=== PATIENT | female | born 1945 | race Caucasian/White ===

== ENCOUNTER 2023-09-03 14:40 | Inpatient (IN) | payer OTHER ==
[2023-09-03 19:50] VITALS: BMI 28.0
[2023-09-03] MEDS: GABAPENTIN 300 MG CAP PO SCH (20:00)
[2023-09-03] MEDS: DOXAZOSIN 2 MG TAB PO SCH (21:06)
[2023-09-03] MEDS: MELATONIN 3 MG TABLET PO PRN (21:07)
[2023-09-03] MEDS: GABAPENTIN 400 MG CAP PO SCH (21:07)
[2023-09-03] MEDS ORDERED: BENZONATATE 100 MG CAP PO PRN (22:04)
[2023-09-03] MEDS ORDERED: IPRATROPIUM BROM 0.5MG/2.5ML NEB PRN (22:05)
[2023-09-03] MEDS ORDERED: ALIROCUMAB SQ SCH (22:15)
[2023-09-04] MEDS: TRAMADOL HCL 50 MG TAB PO PRN (03:12)
[2023-09-04 03:46] LABS: Hematocrit 29.8 % (36.0-45.0); Lymphocytes % 11.8 % (15.3-44.8); MCV 89.1 fL (80-100); MPV 8.1 fL (7.6-11.3); Platelets 260 thou/uL (152-406); RBC Red Blood Cell Count 3.35 M/uL (3.86-4.86)
[2023-09-04 04:05] LABS: Albumin 2.6 g/dL (3.4-5.0); Magnesium 1.9 mg/dL (1.6-2.4); Potassium 3.5 mEq/L (3.5-5.1); Prealbumin 22.3 mg/dL (20-40)
[2023-09-04 04:54] LABS: Calcium Oxalate Crystals- Ur Few /HPF (None Seen); Renal Epithelial <5 /HPF (None Seen); Specific Gravity 1.026 (1.005-1.030); Urine Bacteria Loaded /HPF (<20); Urine Bilirubin NEGATIVE (Negative); Urine Blood 3+ (OVER) (Negative); Urine Clarity Extremely Turbid (Clear); Urine Color Yellow (Yellow); Urine Glucose NEGATIVE (Negative); Urine Mucus 3+ /HPF (None Seen); Urine Protein TRACE (Negative); Urine RBC >50 /HPF (None Seen); Urine Urobilinogen Normal (Normal); Urine pH 5.5 (5.0-7.0)
[2023-09-04] MEDS: PANTOPRAZOLE 40MG TABLET PO SCH (05:42)
[2023-09-04] MEDS: VORTIOXETINE PO SCH (08:00)
[2023-09-04] MEDS: NEBIVOLOL HCL 5 MG TAB PO SCH (08:15)
[2023-09-04] MEDS: MULTIVITAMIN TAB PO SCH (08:15)
[2023-09-04] MEDS: ASPIRIN 81 MG CHEWABLE TABLET PO SCH (08:15)
[2023-09-04] MEDS: GABAPENTIN 300 MG CAP PO SCH ×3 (08:15→20:23)
[2023-09-04] MEDS: ALIROCUMAB SQ SCH (08:16)
--- NOTE | 2023-09-04 18:25 | HP ---
Date of Admission: 09/03/2023 Time Of Service: 12 noon. Chief Complaint: "I became weak. 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 Landis is a 78-year-old patient with hypertension, dyslipidemia, osteo arthritis, major depressive disorder, who had an upper respiratory tract infection in mid July of last year. She subsequently began having tingling, numbness, and weakness progressive from her toes to her feet, to her legs, and to her arms. Within 2 days, she was unable to walk. By August 19 , she had to be hospitalized. She was initially seen at [facility] and diagnosed with viral bronchitis first and received nebulizers and steroids and subsequently had developed the weakn ess in the arms and legs. 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 MRI of her cervical spine showed C5-6 moderate stenosis along wi th C6-7 stenosis, but no edema or myelomalacia. The evaluating physicians noted the cervical canal f indings were likely incidental and may be followed up outpatient, but not contributing to her current symptoms. Additional incidental findings on brain MRI, an acute left temporal lobe lacunar infarct in the right frontal lobe as well. She was treated with aspirin 81 mg daily and was noted to require neurological followup on outpatient basis. She did receive an induction course of IVIG per protocol for she said 6 days, but has not discussed a plan to continue IVIG with her treating physicians. Sh lamar did have incentive spirometry after BiPAP showed she did have hypoxia. She noted that the Guillain -Clements apparently affected up to around the just below the nipple level and it affects her capacity t o breathe and why she required the respiratory support. She has been put on oxygen via nasal cannula and began therapy. In the meantime, she did have elevated leukocytosis, urinary tract infection was identified for which she received Rocephin for 4 days. Further she had a neurogenic bladder identif ied by Urology and had failed voiding trials on 2 occasions. She had a Chao put in place. 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 She was unable to ambulate because of severe weakn ess in lower extremities, do ordinary activities of daily living, to dress lower body, to perform jose wering or toileting. No dependence to moderate assistance required and was therefore determined to b e an appropriate candidate for inpatient rehabilitation to help return towards her prior level of fun ction where she was fully independent without need for any assistive device. Past Medical History: As noted above, arthritis, depression, gastroesophageal reflux disease, dyslip idemia, hypertension, osteoarthritis. Past Surgical History: Bilateral total knee arthroplasty, cardiac catheterization in 2016, cholecyst ectomy 2020, hysterectomy 2013, and shoulder surgery as well. Family History: Noncontributory. Allergies: NO KNOWN DRUG ALLERGIES. Medications: Tylenol 500 mg every 4 hours as needed; aspirin 81 mg daily; Tessalon Perles 100 mg 3 t imes daily; Cardura 2 mg at bedtime; gabapentin 300 mg in the morning, 300 mg at noon, 600 mg at nigh t; Atrovent 0.5 mg twice daily; melatonin 5 mg at bedtime; Centrum Silver 1 tablet daily; Bystolic 5 mg daily; Protonix 40 mg daily; Senokot S 2 at bedtime, tramadol 50 mg every 4 hours as needed. X-ray/imaging: As mentioned above. Review of Systems: She does report some mild shortness of breath, difficulty moving her legs, pain in the feet and legs, worse at nighttime and some tingling as well in the hands, but no other positives on systems review. Current Level Of Functioning: Currently, set up assistance for eating, supervision for oral hygiene, dependent for toileting, maximal assist for showering and upper body dressing, dependent for lower b lee dressing, rolling [id number] and [id number]-[id number] moderate assistance. Bfi-ko-jcbcz bed, moderat e assistance. She is dependent for transfers from bed to chair, to toilet. For ambulation, dependen t, not able ambulate stairs, not able to go up and down stairs. Rehab And Medical Assessment And Plan: Ms. Landis is in the rehabilitation unit with impairment catego ry 19, Guillain-Clements syndrome. Her impairment group code is 03.4 Guillain-Clements Syndrome. 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 Comorbidities are anemia, bronchitis, hypertension, urin aria tract infection, neurogenic bladder, hyperkalemia, hyponatremia, recurrent falls, urinary retenti on, and constipation. She does have a left temporal lobe lacunar infarct and right frontal lobe, als o in acute lacunar infarct and cervical spinal stenosis with nerve root compression, but not signific ant. Plan: 1.She will have physical, occupational, and speech therapy for 3.5 hours, 5/7 days. 2.We will continue the Senokot S for constipation. We may add Flomax to help with urinary retention . We will continue nebulizer treatments including Atrovent nebulizer for her respiratory challenge r elated to Guillain-Clements. Continue aspirin for pain. The gabapentin dosage was adjusted to 300 mg t he morning, 300 mg at noon, and 600 mg at night for the neuropathic pain. She also has a cream of ga bapentin along with 5% lidocaine and 40% zinc that will be applied at night as needed. Comorbidities That Are Impacting Her Rehabilitation: Currently, the biggest issue is diffuse weaknes s in the lower extremities. She is only able to stand with a Patience lift. Unable to do any ambulation . She also has some issues of shortness of breath and will be on incentive spirometry for that. She is at high risk of aspiration pneumonia, high risk of deep vein thrombosis, and she will have an Renita mitul 2.5 mg twice daily for DVT prophylaxis. Rehab Specific Plan: She will work with the Patience lift to bed to sit to stand. She will work in the parallel bars to be able to ambulate at least 10 feet. Arm strength will likely return before lower extremity strength, so wheelchair mobilization and transfers will be worked on. She will work on upp er and lower body dressing, work on toileting. She will work with speech to work on swallowing to re duce the risk of aspiration pneumonia and she will have 3.5 hours, 5/7 days of all of the therapy as noted including the physical, occupational, and speech therapy. Ms. Landis has good understanding of the process of admission to inpatient rehabilitation facility and that she will benefit from physical, occupational, speech therapy along with daily physician evaluati on and management. A 24 hour fdc and social service nurse for planning discharge. If ne ed be, assistance from the respiratory service, cardiac service, nutrition service, and gastrointesti nal service will be consulted. Given the risk of complications from her complicated medical history and condition, rehabilitation cannot be safely or effectively performed at a lower level facility suc h as fdc. Barriers To Discharge: Currently, she was fully independent at home and will possibly not be fully i ndependent prior to discharge and she may require 24 hours help at home. It may be that she has to g o to fdc to complete her therapy. Estimated Length Of Stay: About maybe 14 or longer days. Disposition: Expected to be home with home health and family. Prognosis: Good. Rehab Specific Goals: 1.Become independent with upper and lower body dressing, showering, toileting, donning, and doffing shoes. 2.Independently ambulate household distances of 50 feet with a rolling walker. 3.Independent to propel a wheelchair 250 feet. 4.Independently go and down 5 steps with bilateral handrails. 5.Perform upper and lower body dressing, toileting, showering, all independently. 6.Perform cognitive functioning and managing swallowing independent. The above goals were reviewed with Ms. Landis and she is in agreement. By signing this document, I acknowledge I have performed a full physical examination on Ms. Landis no l ater than 24 hours after her admission to the inpatient rehabilitation facility and determined that s he is able to tolerate the above course of treatment at an intensive level for reasonable period of t bertha. A detailed individualized plan of care for her will be completed by hospital day 4 based on the preadmission screen, history and physical, and therapy evaluations. DARRELL Voice ID: [id number]
[2023-09-04] MEDS: MELATONIN 5 MG TABLET PO PRN (20:23)
[2023-09-04] MEDS: APIXABAN 2.5 MG TABLET PO SCH (20:23)
[2023-09-04] MEDS: ACETAMINOPHEN 500 MG TAB PO PRN (20:24)
[2023-09-04] MEDS: GABAPENTIN TOP SCH (20:24)
[2023-09-04] MEDS: ZINC OXIDE TOP SCH (20:24)
[2023-09-04] MEDS: LIDOCAINE TOP SCH (20:24)
[2023-09-05 06:48] LABS: Absolute Lymphocytes (CBC) 0.9 K/uL (0.7-4.9); Hematocrit 29.7 % (36.0-45.0); Lymphocytes % 19.8 % (15.3-44.8); MCV 88.9 fL (80-100); MPV 8.7 fL (7.6-11.3); Platelets 244 thou/uL (152-406); RBC Red Blood Cell Count 3.34 M/uL (3.86-4.86)
[2023-09-05 07:07] LABS: Albumin 2.5 g/dL (3.4-5.0); Potassium 3.7 mEq/L (3.5-5.1); Prealbumin 20.6 mg/dL (20-40)
[2023-09-05] MEDS: CRANBERRY FRUIT EXTRACT 200 MG CAP PO SCH (09:37)
[2023-09-05] MEDS: SIMETHICONE 80 MG CHEWABLE TAB PO PRN (21:14)
--- NOTE | 2023-09-05 22:16 | PN ---
Date of Progress Note: 09/05/2023 Time Of Service: 1:05 p.m. Subjective: Ms. Landis is resting in bed, getting ready to do physical therapy. She does report some pain in her legs and she believes there is slightly more increased movement in the legs and feet and some tingling as well, but she denies any other significant complaints. Objective: No fevers or chills. No significant nausea, vomiting, myalgias, arthralgias. No rash, h eadache, weight change. No psychiatric issues. No gastrointestinal or genitourinary active issues. Laboratory Studies: White blood cell count 4.4, hemoglobin 10.4, platelets 244. Sodium 137, potassi um 3.7, chloride 105, carbon dioxide 28, BUN 16, creatinine 0.58, prealbumin 22.6, albumin 2.5. Urin alysis from the 10th, extremely turbid, 3+ blood, 2+ nitrite, 75 esterase, greater than 50 red blood cells, white blood cells 20 to 50, bacteria loaded, 3+ mucus, trace protein. Her urine cultures did grow greater than 100,000 colony-forming units and the sensitivities of the 4+ [id number] str ep with 4+ gram-negative rods. Sensitivities for that pending. X-ray/imaging: No new x-rays or imaging. Medications: Tylenol 500 mg every 4 hours as needed, Eliquis 2.5 mg twice daily, aspirin 81 mg daily , Tessalon Perles 100 mg 3 times daily, Cardura 2 mg at bedtime, gabapentin 300 mg in the morning, 30 0 mg at noon, and 600 mg at night, which she did say is helping her significantly, ipratropium nebuli zer 2.5 mg every 6 hours as needed, melatonin 5 mg at bedtime, Centrum Silver 1 tablet daily, Bystoli c 5 mg daily, Zofran 4 mg 6 hours for nausea and vomiting, Protonix 40 mg daily, Senokot-S 2 at bedti me, and tramadol 50 mg every 4 hours as needed. Progress Made With Physical And Occupational Therapy And Speech Therapy: Today with physical therapy , she completed bed mobility with moderate assistance. Supine to sit, max assistance. Sit to transf er 4 times, max assistance. In addition, supine to sit, max assist. Also subsequently with physical therapy, transfer from bed to chair, wheelchair was at maximum assistance level. Regarding her spee ch therapy, she recalled 3 of 4 unrelated pictures after 5 minutes on first attempt and 4 of 4 after second attempt. She used adaptive reasoning to find excluded items per list with 90% accuracy and mi nimum assistance. With occupational therapy, toileting dependent, bathing minimum assist, upper body dressing standby assistance, lower body dressing moderate assistance required, grooming independent. Ms. Landis is making slow progress so far with her physical and occupational therapy, perhaps better pr ogress in speech therapy. She does have significant weakness in the lower extremities. In terms of her neurological examination, the lower extremity strength slowly improving around 3 to 4 proximally and distally with decreased sensation in stocking-glove fashion, decreased reflexes noted there. Assessment: Ms. Landis is a 78-year-old patient in rehabilitation unit with Guillain-[place]. She has l ikely bacterial infection with 4+ iuu-fgal-hadtzsrru strep with sensitivities pending. Additional co morbidities, anemia, bronchitis, hypertension, neurogenic bladder, hyperkalemia, hyponatremia, left t emporal lobe lacunar infarct, and right temporal lobe infarct, cervical spinal stenosis with nerve ro ot compression. Plan: 1.She will continue physical, occupational, and speech therapy for 3.5 hours, 5 of 7 days. 2.Continue with home medications including Flomax for urinary retention. Continue nebulizers for re spiratory challenges. Continue aspirin for stroke risk reduction, gabapentin for neuropathic pain morel s been increased. As noted, she has the gabapentin cream, that will be applied twice daily as needed , and she will again have antibiotics once sensitivities are determined. Centrum Silver continued. Eliquis 2.5 mg twice daily. Continue with only aspirin. Comorbidities That Are Impacting Her Rehabilitation: She has a high fall risk because of diffuse wea kness in the lower extremities and is requiring extensive rehabilitation to improve. She has been gi elmer around 26 days and that should allow her to be able to transfer with more confidence and towards independence and perform household activities with adaptive equipment such as rolling walker and reachers with modified independence wit hin the next 3 weeks. LB/MODL Voice ID: [id number] Report ID: [id number]
[2023-09-06] MEDS: ONDANSETRON 4 MG (ODT) TAB PO PRN (07:01)
[2023-09-06] MEDS: TRINTELLIX 10 MG PO SCH (08:46)
--- NOTE | 2023-09-06 13:16 | P.RH.PN ---
Estimated Length of Stay: 26 Expected Discharge Date: 09/28/23 Discharge Disposition Plan: Home Family Support: Yes Nursing Home Goal: Mobility, Transfers, Self Care Vital Signs: Last Vital Signs Temp 97.7 F 09/06/23 08:00 Pulse 90 09/06/23 09:50 Resp 16 09/06/23 08:45 BP 108/68 09/06/23 09:50 Pulse Ox 96 09/06/23 08:00 Laboratory: Laboratory Last Values WBC 4.40 thou/uL (4.3-10.9) 09/05/23 05:25 RBC 3.34 M/uL (3.86-4.86) L 09/05/23 05:25 Hgb 10.4 g/dL (12.0-15.0) L 09/05/23 05:25 Hct 29.7 % (36.0-45.0) L 09/05/23 05:25 MCV 88.9 fL (80-100) 09/05/23 05:25 MCH 31.1 pg (27.0-35.0) 09/05/23 05:25 MCHC 35.0 g/dL (32.0-36.0) 09/05/23 05:25 RDW 16.4 % (12.1-15.2) H 09/05/23 05:25 Plt Count 244 thou/uL (152-406) 09/05/23 05:25 MPV 8.7 fL (7.6-11.3) 09/05/23 05:25 Neutrophils % 66.1 % (41.7-73.7) 09/05/23 05:25 Lymphocytes % 19.8 % (15.3-44.8) 09/05/23 05:25 Monocytes % 11.0 % (3.3-12.3) 09/05/23 05:25 Eosinophils % 2.5 % (0-4.4) 09/05/23 05:25 Basophils % 0.6 % (0-1.3) 09/05/23 05:25 Absolute Neutrophils 2.9 K/uL (1.8-8.0) 09/05/23 05:25 Absolute Lymphocytes 0.9 K/uL (0.7-4.9) 09/05/23 05:25 Absolute Monocytes 0.5 K/uL (0.1-1.3) 09/05/23 05:25 Absolute Eosinophils 0.1 K/uL (0-0.5) 09/05/23 05:25 Absolute Basophils 0.0 K/uL (0-0.5) 09/05/23 05:25 Sodium 137 mEq/L (136-145) 09/05/23 05:25 Potassium 3.7 mEq/L (3.5-5.1) 09/05/23 05:25 Chloride 105 mEq/L (98-107) 09/05/23 05:25 Carbon Dioxide 28 mEq/L (21-32) 09/05/23 05:25 Anion Gap 7.7 mEq/L (5.0-15.0) 09/05/23 05:25 BUN 16 mg/dL (7-18) 09/05/23 05:25 Creatinine 0.58 mg/dL (0.55-1.02) 09/05/23 05:25 Est GFR (CKD-EPI) 93 ml/min (=/>90) 09/05/23 05:25 Glucose 90 mg/dL (74-106) 09/05/23 05:25 Calcium 9.0 mg/dL (8.5-10.1) 09/05/23 05:25 Magnesium 2.0 mg/dL (1.6-2.4) 09/05/23 05:25 Albumin 2.5 g/dL (3.4-5.0) L 09/05/23 05:25 Prealbumin 20.6 mg/dL (20-40) 09/05/23 05:25 Urine Color Yellow (Yellow) 09/04/23 04:20 Urine Clarity Extremely turbid (Clear) H 09/04/23 04:20 Urine pH 5.5 (5.0-7.0) 09/04/23 04:20 Ur Specific Ayr 1.026 (1.005-1.030) 09/04/23 04:20 Glucose (UA)(Auto) Negative (Negative) 09/04/23 04:20 Urine Ketones Negative (Negative) 09/04/23 04:20 Urine Blood 3+ (over) (Negative) H 09/04/23 04:20 Urine Nitrite 2+ (Negative) H 09/04/23 04:20 Urine Bilirubin Negative (Negative) 09/04/23 04:20 Urine Urobilinogen Normal (Normal) 09/04/23 04:20 Ur Leukocyte Esterase 75 Grace/uL (Negative) H 09/04/23 04:20 Urine RBC >50 /HPF (None Seen) H 09/04/23 04:20 Urine WBC 20-50 /HPF (<5) H 09/04/23 04:20 Ur Squamous Epith Cells <5 /HPF (None Seen) 09/04/23 04:20 U Non-Squamous Epi Cells <5 /HPF (None Seen) 09/04/23 04:20 Ur Renal Epithelial Cell <5 /HPF (None Seen) 09/04/23 04:20 Calcium Oxalate Crystal Few /HPF (None Seen) 09/04/23 04:20 Urine Bacteria Loaded /HPF (<20) H 09/04/23 04:20 Urine Mucus 3+ /HPF (None Seen) H 09/04/23 04:20 Urine Culture Reflexed Reflexed 09/04/23 04:20 Urine Total Protein Trace (Negative) H 09/04/23 04:20 SARS-CoV-2 Rap RNA(RT-PCR) Negative (NEGATIVE) 09/03/23 21:40 Weight: 153 lb 6.4 oz Wound Present: No Negative Pressure Wound Therapy Present: No Physician Update: Labs reviewed and are stable. Bilateral heels and sacrum stage I ulcers. Still significantly weak. BIMS 15, SLUMS 23. Met 2/3 speech goals. Max assistance for all physical therapy. Stood 5 times in parallel bars longest 1 minute. Improved trunk strength. Min assistance lower body dressing. Started sliding board transfers. Summary: Patient's care plan and emt intermediate goals have been reviewed and revised as necessary. Please see the Rehabilitation Signature page for all necessary signatures.
[2023-09-06] MEDS ORDERED: DOCUSATE NA 100 MG CAP PO PRN (15:49)
[2023-09-06] MEDS: NEBIVOLOL HCL 5 MG TAB PO SCH (20:18)
[2023-09-07] MEDS: LIDOCAINE 4% PATCH TOP SCH (07:25)
[2023-09-07] MEDS: PANTOPRAZOLE 40MG TABLET PO SCH (07:27)
[2023-09-07] MEDS: DOCUSATE NA 100 MG CAP PO SCH (08:25)
[2023-09-07] MEDS: TAMSULOSIN 0.4 MG SR CAP PO SCH (20:05)
[2023-09-08] MEDS ORDERED: POTASSIUM 25 MEQ EFFERV TAB PO SCH (08:00)
[2023-09-08] MEDS: GABAPENTIN 300 MG CAP PO SCH (08:18)
[2023-09-08] MEDS: DOCUSATE NA 100 MG CAP PO SCH (08:19)
[2023-09-08] MEDS: CIPROFLOXACIN HCL 500 MG TAB PO SCH (19:44)
[2023-09-08] MEDS: MAGNESIUM OXIDE 400 MG TAB PO SCH (19:46)
[2023-09-09] MEDS: ONDANSETRON 4 MG (ODT) TAB PO PRN (17:18)
--- NOTE | 2023-09-09 18:27 | RAD REPORT ---
EXAM DESCRIPTION: RAD - Abdomen 1 View (KUB) - 09/09/2023 6:04 pm CLINICAL HISTORY: constipation Pain COMPARISON: <Comparisons> FINDINGS: The bowel gas pattern is non-obstructive. No evidence of free air or pneumatosis. No suspi cious calcifications. No significant bony findings. Mild fecal retention. IMPRESSION: Mild fecal retention.
[2023-09-10] MEDS: NA CHLORIDE 0.9% 1,000 ML IV SCH (16:50)
[2023-09-10] MEDS ORDERED: NA CHLORIDE 0.9% 1,000 ML IV SCH (17:00)
[2023-09-10] MEDS: TRAZODONE 50 MG TABLET PO SCH (19:41)
--- NOTE | 2023-09-10 19:54 | PN ---
Date of Progress Note: 09/10/2023 [id number] Progress Note Visit. Time Of Service: 2 p.m. Subjective: Ms. Landis is resting in bed. Daughter at bedside. She has no new complaints, although s he does say that there is some more pain in the feet, especially in the morning time prior to her the rapy sessions. Despite that, she is still able to carry out her therapy. She says strength is not q uite returning as fast as she would like and perhaps sensation is returning more and she is having mo re pain. Objective: She has no fevers, chills, nausea, vomiting, myalgias, arthralgias. No rash. No psychia tric complaints. She does have a urinary tract infection and some discomfort in the pelvic area, but that is improving. Physical Examination: Vital Signs: Blood pressure 151/68, pulse 73, respiratory rate 18, temperature 98.1, oxygen saturati on 98% on room air, weight 155 pounds, height 5 feet 2 inches, BMI 28.4. General: Ms. Landis is lying in bed. She is in no acute distress. HEENT: She is normocephalic, atraumatic. Sclerae anicteric. Oropharynx pink, moist. Neck: Supple. Chest: Clear. Heart: Regular. Extremities: In terms of her strength distally in the feet, she is around 3/5; proximally, around 3+ /5, able to lift slightly against the knee up, but not lift the heel off the bed. She has a stocking -glove loss to light touch, temperature, rose and legs and depressed reflexes. Laboratory Studies: No new laboratory studies since . White blood cell count was 4.4, hemoglobi n 10.4, and her basic metabolic panel is normal. Urinalysis did show urinary tract infection. COVID -19 test was negative and her cultures did grow E coli and Enterococcus faecalis. She is on antibiot ics. Current Medications: Tylenol 500 mg every 4 hours, Eliquis 2.5 mg twice daily, aspirin 81 mg daily, Tessalon Perles 100 mg 3 times daily, ciprofloxacin 500 mg twice daily from the to , Colace 100 mg twice daily, Cardura 2 mg at bedtime, gabapentin now 600 mg in morning, 300 mg at noon and 600 mg at nighttime, Atrovent nebulizer 0.5 mg every 6 hours as needed for shortness of breath, lidocain e patch apply 2 patches to the calf and heel area daily, magnesium oxide 400 mg twice daily, melatoni n 5 mg at bedtime, Bystolic 5 mg at bedtime, Centrum Silver 1 tablet daily, Zofran 4 mg every 4 hours as needed, Protonix 40 mg daily Senokot-S 2 at bedtime, simethicone 80 mg every 6 hours as needed fo r gas pain, Flomax 0.4 mg at bedtime, tramadol 50 mg every 4 hours as needed, and now because of comp laints of difficulty sleeping at night, 25 mg of trazodone at night. Progress Made With Physical And Occupational Therapy: Today with occupational therapy, she was able to perform bathing with supervision, upper body dressing independent, lower body dressing, minimum as sistance. She transferred from wheelchair to shower chair and bed with maximum assistance for stand and pivot transfer. Today with physical therapy, mobilized wheelchair 150 feet twice with standby as sistance. Supine to sit, minimum assistance; [id number], minimum assistance. With speech therapy, used word retrieval skills during a structured word-finding task with 92% accuracy and minimum raji tance. Recalled 3 of 4 items after 5 minutes on the first attempt and 4 of 4 after 5 minutes on the second attempt. Ms. Landis is making fair progress overall with physical and occupational therapy. Her strength is not returning very quickly. She does have likely more sensation return and she is feeling more tingling , burning and discomfort in her feet, especially in the morning. Speech, she is doing very well. No issues of swallowing. Assessment: Ms. Landis is in the rehabilitation unit with Guillain-[place] and she likely has some retur n of sensation. She has more pain in the legs. She has some difficulty with sleeping at night and i nsomnia. She does have neurogenic bladder, hypertension, hyponatremia, just improved, left temporal lobe lacunar infarct and cervical spinal stenosis with cord and nerve root compression. Plan: 1.Continue with physical, occupational and speech therapy for 3.5 hours, 5 out of 7 days. 2.She is on multiple medications for managing her neuropathic pain, also for sleep. Those will cont inue. She does have again for the neuropathic pain, gabapentin orally and gabapentin elixir cream. She is on Eliquis 2.5 mg twice daily for DVT prophylaxis. She is continuing with Cipro for urinary t ract infection and blood pressures and sugars are managed. Comorbidities That Impact Her Rehabilitation: Currently, her urinary tract infection is making perha ps a little bit uncomfortable at night, but she does have trazodone added and she is on ciprofloxacin . In addition, the pain in the feet making it difficult, it is somewhat difficult for her to do ther apy in the morning. Gabapentin has been adjusted for that. The discussion was made about continuing the IVIG treatment. The [facility] physicians will be contacted and she may have another round of IVIG about a month after her the last dosage, which was about 2-3 weeks ago. CECIL/YAIMA Voice ID: [id number] Report ID: [id number]
[2023-09-11] MEDS: DOCUSATE NA/SENNA CONC 1 TAB PO PRN (04:54)
[2023-09-11] MEDS ORDERED: DOCUSATE NA 100 MG CAP PO PRN (05:33)
[2023-09-11] MEDS ORDERED: BISACODYL 10 MG RECTAL SUPP PR PRN (05:35)
[2023-09-11] MEDS: GABAPENTIN 300 MG CAP PO SCH ×2 (07:13→14:20)
[2023-09-11] MEDS: DOCUSATE NA/SENNA CONC 1 TAB PO SCH (20:03)
--- NOTE | 2023-09-11 21:27 | PN ---
Date of Progress Note: 09/11/2023 Time Of Service: 1:05 p.m. Subjective: Ms. Landis is in a chair getting ready to do therapy. She reports some improvement in her symptoms. Her Chao catheter was discontinued and she has been able to sense urination and was able to urinate and had very little residual after around 155 cc. Also, she is noting more movement in h er legs and feet and is ready for more ambulation. Objective: No fevers, chills, nausea, vomiting, myalgias, arthralgias, rash, headache, weight change . She does have again some pain in the feet, more tingling. She said she actually slept better last night and so the insomnia is improving. Physical Examination: Vital Signs: Blood pressure 142/64, pulse 74, respiratory rate 17, temperature 98.4, oxygen saturati on 94% on room air. General: Ms. Danette Landis is sitting in a chair. She is in no acute distress. HEENT: She is normocephalic, atraumatic. Sclerae anicteric. Oropharynx pink, moist. Neck: Supple. Chest: Clear. Heart: Regular. Extremities: Show no significant cyanosis, clubbing, or edema. Lower extremity strength is returnin g around 3 to 4 in the dorsiflexion, plantar flexion, proximally more 4/5. Sensation still stocking- glove loss to light touch temperature. Laboratory Studies: No new laboratory studies. X-ray/imaging: No new x-rays or imaging. Medications: Her medications have been reviewed. She has Dulcolax suppository for constipation and Senokot-S 2 at bedtime and gabapentin 300 mg in the morning, 600 mg at night, and 300 mg at noon. Me dications also have been continued, otherwise as daughter stated previously. Progress Made With Physical, Occupational, And Speech Therapy: Today with physical therapy, she was able to complete bed mobility exercises with contact guard assistance. Did supine to sit with contac t guard to minimum assistance. She ambulated 10 feet with bilateral platform walker. She was able t o hold her weight with bilateral upper extremities. She is again improving fairly, although somewhat slowly. With occupational therapy, she was dependent for toilet hygiene after a bowel movement, was from edge of bed to wheelchair standby assistance. She gets fatigue with activities of daily living and transfers with multiple attempts and significant fatigue. Regarding speech, she used word retri eval skills for complex word-finding task with 95% accuracy and minimum assistance. Four-word memory task completed with sequencing with 100% accuracy and moderate verbal cues. Ms. Landis is making good progress with speech and fair progress with physical and occupational therapy , although she has significant weakness in the lower extremities making it difficult for her to thriv e, but she is doing that she can, given limitations of Guillain-[place]. Assessment: Ms. Landis is a 78-year-old patient in the rehabilitation unit with Guillain-[place], from [facility] she is beginning to recover, but to a slow degree. She has urinary retention with neurogenic bl adder, hypertension, hyponatremia, and a left temporal lobe lacunar infarct, cervical spinal stenosis with nerve compression. Plan: 1.Continue physical, occupational, and speech therapy for 3.5 hours, 5 of 7 days. 2.Continue with gabapentin topical and oral. Continue with Eliquis 2.5 mg twice daily for DVT proph ylaxis. Continue Cipro for urinary tract infection. Continue with management of blood sugars and bl ood pressures. Continue with Senokot and Dulcolax for constipation, Flomax again for the urinary ret ention. Use tramadol as needed for pain, Cardura for heart rate and blood pressure control. Comorbidities That Continue To Impact Her Rehabilitation: Currently, she did have issues with urinar y retention that is improving and urine tract infection treated with ciprofloxacin and she is doing w [facility] from that perspective. She still has significant weakness in lower extremities and requires a lot of help to begin to recover. LB/MODL Voice ID: [id number] Report ID: [id number]
[2023-09-12 07:37] LABS: Absolute Lymphocytes (CBC) 0.9 K/uL (0.7-4.9); Hematocrit 32.4 % (36.0-45.0); Lymphocytes % 20.7 % (15.3-44.8); MCV 91.2 fL (80-100); MPV 8.2 fL (7.6-11.3); Platelets 458 thou/uL (152-406); RBC Red Blood Cell Count 3.55 M/uL (3.86-4.86)
[2023-09-12] MEDS: LOPERAMIDE HCL 2 MG CAPSULE PO PRN (10:20)
[2023-09-12 11:05] LABS: Albumin 2.8 g/dL (3.4-5.0); Magnesium 2.2 mg/dL (1.6-2.4); Potassium 3.5 mEq/L (3.5-5.1); Prealbumin 15.8 mg/dL (20-40)
--- NOTE | 2023-09-12 19:11 | PN ---
Date of Progress Note: 09/12/2023 Time Of Service: 1:20 p.m. Subjective: Ms. Landis is sitting in a chair beside her bed, getting ready to begin another session of therapy. She notes some improvement in her distal lower extremity strength, more foot dorsiflexion and plantar flexion along with knee extension and elevation. Still has some significant weakness pro ximally lifting her knees. She has no additional complaints. Review of Systems: She did have some loose stools earlier today and had total of 4, has Imodium, and the loose stools morel ve subsided. Aside from that, no other issues. Physical Examination: Vital Signs: Blood pressure 143/65, pulse 86, respiratory rate 18, temperature 98.4, O2 saturation 9 7%. General: Ms. Landis is sitting in a chair beside the bed. HEENT: She is normocephalic, atraumatic. Sclerae anicteric. Oropharynx pink and moist. Neck: Supple. Chest: Clear. Heart: Regular. Extremities: No significant edema, cyanosis, or clubbing. Again, strength in the distal lower extre mities around 3 to 4, proximally around 3 to 4 as well. Laboratory Studies: White blood cell count 4.3, hemoglobin 11.2, platelets 458. Sodium 141, potassi um 3.5, chloride 107, carbon dioxide 26, BUN 11, hematocrit 0.76. Her prealbumin 15.8, albumin 2.8, magnesium 2.2, calcium 8.8. Urinalysis from the , today is 18th, as already mentioned, and her C OVID-19 test on the th was negative. X-ray/imaging: No new x-rays or imaging. Medications: Her medications have been reviewed. Again, she did receive Imodium today for multiple loose stools and she is actually completing ciprofloxacin for urinary tract infection. She started o n 09/08 and to complete on 09/13, which is tomorrow. Otherwise, medications are unchanged. Progress Made With Physical And Occupational Therapy: Today with physical therapy, she completed sit -to-stand transfers, 4 times in parallel bars, needed moderate assistance. She worked on a sliding b oard transfer with minimum assistance. She self propelled a wheelchair 100 feet twice with bilateral upper extremities and supervision. With occupational therapy, dependent for toilet hygiene, unable to clean her buttocks after bowel movement. She was at standby assistance for wheelchair to edge of bed transfer. With speech therapy, she is able to do word retrieval tasks with 80% accuracy and inde pendently. She was able to recall details from a picture presented to her with 70% accuracy and mini mal assistance. She was able to name 59 on a concrete category and 7 in abstract category with minim um assistance. Ms. Landis is making good progress with her speech therapy, somewhat slower progress with her physical and occupational therapy. Assessment: Ms. 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 She h as a neurogenic bladder, urine tract infection being treated. She has chronic left temporal lobe lac unar infarct, spinal stenosis, and nerve compression. Plan: 1.Continue with physical, occupational, and speech therapy for 3.5 hours, 5 of 7 days. 2.Continue with Imodium for her diarrhea. 3.Eliquis for DVT prophylaxis. 4.Cipro completed for urinary tract infection. Senokot and duloxetine will be held while she has di arrhea, Flomax for urinary retention, Cardura for heart rate and blood pressure control, and will als o follow blood sugars which have been ranging up to 121 at max. Comorbidities That Are Continuing To Impact Her Rehabilitation: Urinary tract infection treated with ciprofloxacin may be a contributing factor to her loose stools and tomorrow will be the last day. If need be, stool samples will be evaluated for ova and parasites and C. diff. CECIL/YAIMA Voice ID: [id number] Report ID: [id number]
--- NOTE | 2023-09-13 13:10 | P.RH.PN ---
Estimated Length of Stay: 26 Expected Discharge Date: 09/27/23 Discharge Disposition Plan: Home Family Support: Yes Long-Term Goal: Mobility, Transfers, Self Care Vital Signs: Last Vital Signs Temp 97.6 F 09/13/23 06:32 Pulse 75 09/13/23 06:32 Resp 18 09/13/23 07:58 BP 156/71 H 09/13/23 06:32 Pulse Ox 97 09/13/23 07:58 Laboratory: Laboratory Last Values WBC 4.30 thou/uL (4.3-10.9) 09/12/23 07:21 RBC 3.55 M/uL (3.86-4.86) L 09/12/23 07:21 Hgb 11.2 g/dL (12.0-15.0) L 09/12/23 07:21 Hct 32.4 % (36.0-45.0) L 09/12/23 07:21 MCV 91.2 fL (80-100) 09/12/23 07:21 MCH 31.4 pg (27.0-35.0) 09/12/23 07:21 MCHC 34.4 g/dL (32.0-36.0) 09/12/23 07:21 RDW 16.8 % (12.1-15.2) H 09/12/23 07:21 Plt Count 458 thou/uL (152-406) H 09/12/23 07:21 MPV 8.2 fL (7.6-11.3) 09/12/23 07:21 Neutrophils % 65.8 % (41.7-73.7) 09/12/23 07:21 Lymphocytes % 20.7 % (15.3-44.8) 09/12/23 07:21 Monocytes % 8.2 % (3.3-12.3) 09/12/23 07:21 Eosinophils % 4.6 % (0-4.4) H 09/12/23 07:21 Basophils % 0.7 % (0-1.3) 09/12/23 07:21 Absolute Neutrophils 2.8 K/uL (1.8-8.0) 09/12/23 07:21 Absolute Lymphocytes 0.9 K/uL (0.7-4.9) 09/12/23 07:21 Absolute Monocytes 0.4 K/uL (0.1-1.3) 09/12/23 07:21 Absolute Eosinophils 0.2 K/uL (0-0.5) 09/12/23 07:21 Absolute Basophils 0.0 K/uL (0-0.5) 09/12/23 07:21 Sodium 141 mEq/L (136-145) 09/12/23 10:30 Potassium 3.5 mEq/L (3.5-5.1) 09/12/23 10:30 Chloride 107 mEq/L (98-107) 09/12/23 10:30 Carbon Dioxide 26 mEq/L (21-32) 09/12/23 10:30 Anion Gap 11.5 mEq/L (5.0-15.0) 09/12/23 10:30 BUN 11 mg/dL (7-18) 09/12/23 10:30 Creatinine 0.76 mg/dL (0.55-1.02) 09/12/23 10:30 Est GFR (CKD-EPI) 81 ml/min (=/>90) L 09/12/23 10:30 Glucose 121 mg/dL (74-106) H 09/12/23 10:30 Calcium 8.8 mg/dL (8.5-10.1) 09/12/23 10:30 Magnesium 2.2 mg/dL (1.6-2.4) 09/12/23 10:30 Albumin 2.8 g/dL (3.4-5.0) L 09/12/23 10:30 Prealbumin 15.8 mg/dL (20-40) L 09/12/23 10:30 Urine Color Yellow (Yellow) 09/04/23 04:20 Urine Clarity Extremely turbid (Clear) H 09/04/23 04:20 Urine pH 5.5 (5.0-7.0) 09/04/23 04:20 Ur Specific [place] 1.026 (1.005-1.030) 09/04/23 04:20 Glucose (UA)(Auto) Negative (Negative) 09/04/23 04:20 Urine Ketones Negative (Negative) 09/04/23 04:20 Urine Blood 3+ (over) (Negative) H 09/04/23 04:20 Urine Nitrite 2+ (Negative) H 09/04/23 04:20 Urine Bilirubin Negative (Negative) 09/04/23 04:20 Urine Urobilinogen Normal (Normal) 09/04/23 04:20 Ur Leukocyte Esterase 75 Grace/uL (Negative) H 09/04/23 04:20 Urine RBC >50 /HPF (None Seen) H 09/04/23 04:20 Urine WBC 20-50 /HPF (<5) H 09/04/23 04:20 Ur Squamous Epith Cells <5 /HPF (None Seen) 09/04/23 04:20 U Non-Squamous Epi Cells <5 /HPF (None Seen) 09/04/23 04:20 Ur Renal Epithelial Cell <5 /HPF (None Seen) 09/04/23 04:20 Calcium Oxalate Crystal Few /HPF (None Seen) 09/04/23 04:20 Urine Bacteria Loaded /HPF (<20) H 09/04/23 04:20 Urine Mucus 3+ /HPF (None Seen) H 09/04/23 04:20 Urine Culture Reflexed Reflexed 09/04/23 04:20 Urine Total Protein Trace (Negative) H 09/04/23 04:20 SARS-CoV-2 Rap RNA(RT-PCR) Negative (NEGATIVE) 09/03/23 21:40 Weight: 155 lb 3.2 oz Wound Present: No Closed Surgical Incision Present: No Negative Pressure Wound Therapy Present: No Physician Update: Labs reviewed and are stable. Lower back and leg pain up to 7/10 but mostly 3/10. She has three stage I heel ulcers. Doing very well with speech, memory is great, swallow in good. Min assist bed mobility, transfers without sliding board, 38' with RW. Met ADL goals to min assist. 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 Please see the Rehabilitation Signature page for all necessary signatures.
[2023-09-13] MEDS ORDERED: DOCUSATE NA/SENNA CONC 1 TAB PO PRN (16:26)
[2023-09-13] MEDS: ENSURE ENLIVE 237 ML CAN PO SCH (19:42)
[2023-09-14] MEDS ORDERED: PANTOPRAZOLE 40MG TABLET PO ONE (19:31)
[2023-09-14] MEDS: PANTOPRAZOLE 40MG TABLET PO SCH (19:42)
--- NOTE | 2023-09-16 21:54 | PN ---
Date of Progress Note: 09/16/2023 Time Of Service: 1 p.m. Subjective: Ms. Landis is sitting in a chair beside bed, getting ready for another session of therapy. She is very happy so far with her recovery of strength and movement in the lower extremities. Reddy fabian, she still has significant weakness and numbness. She has some tingling in her toes and ball of her feet. Review of Systems: No fevers, chills. She did have some loose stools and now that it is improved, likely related to mag nesium and that has been held. No other complaints on review of systems. Physical Examination: Vital Signs: Blood pressure 163/70, pulse 79, respiratory rate 16, temperature 97.6, oxygen saturati on 91% on room air. General: Ms. Landis is sitting in a chair. HEENT: She is normocephalic, atraumatic. Sclerae anicteric. Oropharynx pink and moist. Neck: Supple. Chest: Clear. Heart: Regular. Extremities: No significant edema, cyanosis, or clubbing in the extremities. Diffuse weakness in th e lower extremity, more distal than proximal. Laboratory Studies: No new laboratory studies since the . X-ray/imaging: No new x-rays. Medications: Medications have been reviewed and remained unchanged. Progress Made With Physical And Occupational Therapy: Today with physical therapy, she was able to d o ambulation with a rolling walker 10 feet twice with contact guard to minimum assistance. Also, she walked 4 times over an 8-foot distance in parallel bars with contact guard to minimum assistance. W ith occupational therapy, supervision for wheelchair to squatting transfers. With speech therapy, brian newton was 83% accurate in completing her deductive reasoning homework independently and 90% accurate in t asks overall during the session, which included problem-solving, deductive reasoning, and recalling d etails from a passage. Ms. Landis is making good progress so far with her physical and occupational therapy. She does have a good amount of days in rehab. Inquiry will be made as to when she may receive another course of IVIG after her induction and that usually is at a 1 month interval. The physicians who initiated therapy will be contacted this week. Assessment: Ms. Landis is a 78-year-old patient in the rehabilitation unit with Guillain-[place], status post IVIG treatment, who is making fair progress overall with physical, occupational, and speech the rapy. She still has a neurogenic bladder and treated urinary tract infection, temporal lobe infarct, spinal stenosis, neuropathy, and compression of nerves in the lower extremities. Plan: 1.Continue with physical, occupational, and speech therapy for 3.5 hours, 5 of 7 days. 2.Continue with DVT prophylaxis using Eliquis. Complete treatment for urinary tract infection. We will hold the magnesium as likely contributing to some loose stools. Hold Senokot S as well. Contin ue Flomax for urinary retention and aspirin 81 mg daily for stroke risk reduction. Tylenol 500 mg ev sebastián 4 hours for pain management. Tessalon Perles 100 mg 3 times daily for cough, gabapentin 600 mg i n the morning, 600 mg at noon and 300 mg in the evening time for the neuropathic pain, ipratropium ne bulizer, lidocaine patch applied to daily, melatonin for insomnia, Centrum Silver, continue Zofran fo r nausea, Protonix for GE reflux, Flomax for urinary retention, and trazodone also for insomnia. Comorbidities That Continue To Impact Her Rehabilitation: Her significant issue is the weakness and numbness in the lower extremities, which is improving slowly. Cognitively, she is improving at a fas ter pace. Her infections are improving with treatment and no evidence of any worsening infection. C ognitively, again doing better. She will likely however require significant help even beyond the aidan e that she has, which is about 3 weeks in inpatient rehabilitation and she will likely require a level course of IVIG perhaps on a monthly basis. CECIL/YAIMA Voice ID: [id number] Report ID: [id number]
--- NOTE | 2023-09-17 21:06 | PN ---
Date of Progress Note: 09/17/2023 Time Of Service: 1:10 p.m. Subjective: Ms. Landis is in the hallway going along with the therapist. She is making progress and i s encouraged by the return of sensation and movements in her lower extremities. However, she still h as complaints of some tingling and pain in the toes and balls of her feet. Review of Systems: No fevers, chills, nausea, vomiting. No myalgias, arthralgias, rash, headache, weight change. No ac tive psychiatric issues. Physical Examination: Vital Signs: Blood pressure 159/83, pulse 75, respiratory rate 16, temperature 97.5, oxygen saturati on 97%. General: Ms. Landis is ambulating with a rolling walker short steps. She is steady and narrow based. HEENT: She appears normocephalic, atraumatic. Sclerae anicteric. Oropharynx is moist. Neck: Supple. Chest: Clear. Heart: Regular. Extremities: Show no significant clubbing, cyanosis, or edema. Neurological: Diffuse weakness of lower extremities distally and proximally. Reflexes are absent. Sensation, stocking-glove loss light touch temperature. Laboratory Studies: No new laboratory studies. X-ray/imaging: No new x-rays or imaging. Medications: Her medications have been reviewed and remained unchanged. Progress Made With Physical And Occupational Therapy: Today, she was able to ambulate with a rolling walker covered 30 feet 3 times with 2 seated rest breaks and then completed 90 feet with a rolling w alker with contact guard assistance. She had difficulty lifting her leg up all the way. She had lef t toe stuck and I was able to advance left lower extremity at multiple points. She worked on squat p ivot transfer to bed with minimum assistance, [id number] done with contact guard assistance. With occupational therapy, she was independent with bathing and upper body dressing, some need with raji tive device to pull up pants over the buttocks and donning and doffing of footwear. With her speech therapy, she completed active reading skills with 100% accuracy without cues. She recall details of paragraphs with 90% accuracy and minimum assistance. Word retrieval was done with spontaneous conver sation using circumlocutory speech at 80% accuracy independently. Ms. Landis is making good progress overall with physical and occupational therapy, but will still need more time to complete her recovery. Assessment: Ms. Landis is a 78-year-old patient in the rehabilitation unit with Guillain-[place] and she is making fair progress overall with physical, occupational, and speech therapy. She has treated ur ine tract infection, temporal lobe infarct, spinal stenosis, neuropathy, and lower extremity nerve co mpression. Plan: 1.Continue physical, occupational, and speech therapy for 3.5 hours, 5 of 7 days. 2.Multiple comorbid medications are used to address issues including cough with Tessalon Perles, Tyl enol for pain, gabapentin for neuropathic pain, ipratropium nebulizer 0.4 for respiratory challenges, lidocaine patch added for pain, Centrum Silver added, Zofran for nausea, Protonix for reflux, Flomax for urinary tract infection, and trazodone used for insomnia. Comorbidities That Continue To Impact Her Rehabilitation: Currently, she is unable to feel she says her heels, but balls of her feet and her toes are coming back. She has to look down where she is trip pping and that challenge will put her at high risk of falls. She must ambulate with a walker at all times and have good light at night when trying to transfer, those are conditions which she is working on while in hospital and plan for discharge. We will recommend continuing careful implementation of those plans. In addition, after discharge, she will be considered for ongoing course of IVIG to hel p facilitate recovery of strength, coordination, balance sensation in her lower extremities. CECIL/YAIMA Voice ID: [id number] Report ID: [id number]
[2023-09-18] MEDS: ALIROCUMAB SQ SCH (09:35)
--- NOTE | 2023-09-18 20:41 | PN ---
Date of Progress Note: 09/18/2023 Time Of Service: 1 p.m. Subjective: Ms. Landis is in the bed ready to begin another therapy session. She is happy with her pr ogress so far. Notes more strength in her feet and legs. Also some tingling in balls of her feet an d toes. Review of Systems: She denies any fevers, chills, nausea, vomiting. No myalgias, arthralgias, rash, headache, weight ch alex. No psychiatric issues or gastrointestinal issues. Physical Examination: Vital Signs: Blood pressure 144/65, pulse 76, respiratory rate 16, temperature 98.1, oxygen saturati on 95%. General: Ms. Landis is resting comfortably. HEENT: She is normocephalic, atraumatic. Sclerae anicteric. Oropharynx moist. Neck: Supple. Chest: Clear. Heart: Regular. Extremities: Show no significant cyanosis or edema. Neurological: The lower extremity strength is improving slowly, she has 3/5 distally and 3+/- out of 5 proximally and decreased sensation in stocking-glove fashion. Laboratory Studies: No new laboratory studies. X-ray/imaging: No new x-rays or imaging studies. Medications: Her medications have been reviewed and remain unchanged. She is still on Eliquis 2.5 m g twice daily for DVT prophylaxis. She has aspirin 81 mg daily for stroke risk reduction, gabapentin for neuropathic pain. Lidocaine patch also applied for pain, melatonin for insomnia, Senokot S for constipation, trazodone for sleeping at night as well and Ultram for pain along with Flomax for urina ry retention. Progress Made With Physical And Occupational Therapy: Today with physical therapy, she was able to c omplete gait training 25 feet 4 times with a rolling walker in the morning and she mobilized a wheelc hair 170 feet independently. With her occupational therapy, she completed toilet hygiene maximal ass istance, pull her pants up and down, completed 2 [id number] with contact guard assistance. In term s of speech, she completed inductive reasoning problems with 100% accuracy and minimum assistance. H ad no incidence of anomia during conversations. She recalls details of a passage with 80% accuracy a nd minimum assistance. She is making great progress given her starting point of significant weakness from Guillain-[place], we akness more in the lower extremities with incoordination and loss of balance. Assessment: Ms. Landis is a 78-year-old patient, recovering from Guillain-[place], status post IVIG joss tment. She has urinary tract infection, temporal lobe infarct, spinal stenosis, peripheral neuropath y, insomnia, and urinary retention. Plan: 1.Continue physical, occupational, and speech therapy for 3.5 hours, 5 of 7 days. 2.She has multiple comorbid condition medications as noted above, which she will continue and she morel s DVT prophylaxis on board. Continue with Flomax for urinary retention. Continue trazodone for inso mnia and ipratropium nebulizer. Comorbidities That Continue To Impact Rehabilitation: Her significant weakness and numbness of lower extremities is a biggest factor making it difficult to recover very quickly. However, she is aware that the time and effort in recovery will make things better as she is seeing improvement. Planned f or discharge next week and will continue physical therapy via Home Health and she may receive a cours e of IVIG. CECIL/YAIMA Voice ID: [id number] Report ID: [id number]
[2023-09-19 04:54] LABS: Absolute Lymphocytes (CBC) 0.9 K/uL (0.7-4.9); Hematocrit 29.5 % (36.0-45.0); Lymphocytes % 22.1 % (15.3-44.8); MCV 91.1 fL (80-100); MPV 8.3 fL (7.6-11.3); Platelets 301 thou/uL (152-406); RBC Red Blood Cell Count 3.24 M/uL (3.86-4.86)
[2023-09-19 05:22] LABS: Albumin 2.7 g/dL (3.4-5.0); Magnesium 1.9 mg/dL (1.6-2.4); Potassium 3.1 mEq/L (3.5-5.1); Prealbumin 14.8 mg/dL (20-40)
[2023-09-19] MEDS: POTASSIUM CL SA 10 MEQ TAB PO ONE (16:38)
[2023-09-19] MEDS: ALIROCUMAB SQ SCH (16:39)
--- NOTE | 2023-09-19 18:59 | PN ---
Date of Progress Note: 09/19/2023 Time Of Service: 1 p.m. Subjective: Ms. Landis is resting in bed in between therapy sessions. She is feeling more sensations in the feet and actually she is able to after the Chao was removed sense that she did use the bathro om and actually was able to go about 4 times and is requesting that we cut back the Flomax which is c urrently twice daily and that was actually done, it was held. Otherwise, no other complaints on subj ective. Review of Systems: No fevers, chills, nausea, vomiting, myalgias, arthralgias, rash, headache, weight change. No psychi atric complaints. No gastrointestinal complaints. No genitourinary complaints except for the freque nt urination, which we are addressing. Physical Examination: Vital Signs: Blood pressure 168/73, pulse of 74, respiratory rate 16, temperature 98, oxygen saturat ion 95%. General: Ms. Landis is again resting comfortably. HEENT: She is normocephalic, atraumatic. Sclerae anicteric. Oropharynx pink and moist. Neck: Supple. Chest: Clear. Heart: Regular. Extremities: Show no clubbing or cyanosis. There is mild edema in the legs. Laboratory Studies: White blood cell count 4.1, hemoglobin 10.2, platelets 301. Sodium 143, potassi um 3.1, and has been replaced with 20 mEq x1 and 10 mEq daily, chloride 108, BUN 7, creatinine 0.55, calcium 8.4, magnesium 1.9, albumin 2.7, prealbumin 14.8. X-ray/imaging: No new x-rays or imaging. Medications: Medications have been reviewed. Again, she did receive 20 mEq of potassium today, will then have 10 twice daily after that, and repeat blood work next week. She has Eliquis 2.5 mg twice daily for DVT prophylaxis and Tylenol for pain, Cardura for heart rate control along with lo Sanabria for insomnia, Senokot-S for constipation. Progress Made With Physical And Occupational Therapy: Today, she ambulated 35 feet with a Rollator w ith contact guard assistance. She did gactml-[id number] transfers, turning in bed with modified independ ence. Multiple qaf-hn-[id number] transfers and stand pivot transfers with contact guard assist. She is i n occupational therapy, doing very well, tolerated 5 minutes of static standing with grab bars. She did side step with the left and right with grab bars and improved toilet transfers with no loss of ba sachin. She is making excellent progress the therapist noted. With speech, she was able to score 15 on the BIMS and 30 on the SLUMS, which is completely normal. Ms. 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 Assessment: Ms. 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 She has comorbidities that are stably managed including the neuropathy associate d with Guillain-Pelion, spinal stenosis, and urinary retention, which is resolving well. Urine tract infection has been treated. Temporal lobe infarct is not an impact at this point and is stable. Plan: 1.Continue with physical, occupational, and speech therapy for 3.5 hours, 5 of 7 days. 2.Continue with her comorbid condition medications with the changing of holding the Flomax and may r estart in a day just 1 daily instead of 2 depending on her response to her ability to voluntarily uri bianca. Continue with DVT prophylaxis. Continue with trazodone for insomnia. Continue her nebulizers as scheduled. Comorbidities That Continue To Impact Rehabilitation: The significant comorbidities are weakness in lower extremities making difficult to ambulate well, but she is beginning to do very well. Cognitive ly, she is all normal. With occupational therapy again, making great progress there and has not nega tively impacted and her comorbidities do not negatively impact her ability to thrive and do well with physical, occupational, and speech therapy. LB/MODL Voice ID: [id number] Report ID: [id number]
[2023-09-20] MEDS: POTASSIUM CL SA 10 MEQ TAB PO SCH (07:40)
--- NOTE | 2023-09-20 13:12 | P.RH.PN ---
Estimated Length of Stay: 26 Expected Discharge Date: 09/26/23 Discharge Disposition Plan: Home Family Support: Yes Penitentiary Goal: Mobility, Transfers, Self Care Vital Signs: Last Vital Signs Temp 97.5 F 09/20/23 06:41 Pulse 81 09/19/23 21:30 Resp 18 09/20/23 09:33 BP 163/69 H 09/19/23 21:30 Pulse Ox 94 09/20/23 09:33 Laboratory: Laboratory Last Values WBC 4.10 thou/uL (4.3-10.9) L 09/19/23 04:24 RBC 3.24 M/uL (3.86-4.86) L 09/19/23 04:24 Hgb 10.2 g/dL (12.0-15.0) L 09/19/23 04:24 Hct 29.5 % (36.0-45.0) L 09/19/23 04:24 MCV 91.1 fL (80-100) 09/19/23 04:24 MCH 31.4 pg (27.0-35.0) 09/19/23 04:24 MCHC 34.4 g/dL (32.0-36.0) 09/19/23 04:24 RDW 16.0 % (12.1-15.2) H 09/19/23 04:24 Plt Count 301 thou/uL (152-406) 09/19/23 04:24 MPV 8.3 fL (7.6-11.3) 09/19/23 04:24 Neutrophils % 61.1 % (41.7-73.7) 09/19/23 04:24 Lymphocytes % 22.1 % (15.3-44.8) 09/19/23 04:24 Monocytes % 13.0 % (3.3-12.3) H 09/19/23 04:24 Eosinophils % 2.4 % (0-4.4) 09/19/23 04:24 Basophils % 1.4 % (0-1.3) H 09/19/23 04:24 Absolute Neutrophils 2.5 K/uL (1.8-8.0) 09/19/23 04:24 Absolute Lymphocytes 0.9 K/uL (0.7-4.9) 09/19/23 04:24 Absolute Monocytes 0.5 K/uL (0.1-1.3) 09/19/23 04:24 Absolute Eosinophils 0.1 K/uL (0-0.5) 09/19/23 04:24 Absolute Basophils 0.1 K/uL (0-0.5) 09/19/23 04:24 Sodium 143 mEq/L (136-145) 09/19/23 04:24 Potassium 3.1 mEq/L (3.5-5.1) L 09/19/23 04:24 Chloride 108 mEq/L (98-107) H 09/19/23 04:24 Carbon Dioxide 30 mEq/L (21-32) 09/19/23 04:24 Anion Gap 8.1 mEq/L (5.0-15.0) 09/19/23 04:24 BUN 7 mg/dL (7-18) 09/19/23 04:24 Creatinine 0.55 mg/dL (0.55-1.02) 09/19/23 04:24 Est GFR (CKD-EPI) 94 ml/min (=/>90) 09/19/23 04:24 Glucose 93 mg/dL (74-106) 09/19/23 04:24 Calcium 8.4 mg/dL (8.5-10.1) L 09/19/23 04:24 Magnesium 1.9 mg/dL (1.6-2.4) 09/19/23 04:24 Albumin 2.7 g/dL (3.4-5.0) L 09/19/23 04:24 Prealbumin 14.8 mg/dL (20-40) L 09/19/23 04:24 Urine Color Yellow (Yellow) 09/04/23 04:20 Urine Clarity Extremely turbid (Clear) H 09/04/23 04:20 Urine pH 5.5 (5.0-7.0) 09/04/23 04:20 Ur Specific Sh[place] 1.026 (1.005-1.030) 09/04/23 04:20 Glucose (UA)(Auto) Negative (Negative) 09/04/23 04:20 Urine Ketones Negative (Negative) 09/04/23 04:20 Urine Blood 3+ (over) (Negative) H 09/04/23 04:20 Urine Nitrite 2+ (Negative) H 09/04/23 04:20 Urine Bilirubin Negative (Negative) 09/04/23 04:20 Urine Urobilinogen Normal (Normal) 09/04/23 04:20 Ur Leukocyte Esterase 75 Grace/uL (Negative) H 09/04/23 04:20 Urine RBC >50 /HPF (None Seen) H 09/04/23 04:20 Urine WBC 20-50 /HPF (<5) H 09/04/23 04:20 Ur Squamous Epith Cells <5 /HPF (None Seen) 09/04/23 04:20 U Non-Squamous Epi Cells <5 /HPF (None Seen) 09/04/23 04:20 Ur Renal Epithelial Cell <5 /HPF (None Seen) 09/04/23 04:20 Calcium Oxalate Crystal Few /HPF (None Seen) 09/04/23 04:20 Urine Bacteria Loaded /HPF (<20) H 09/04/23 04:20 Urine Mucus 3+ /HPF (None Seen) H 09/04/23 04:20 Urine Culture Reflexed Reflexed 09/04/23 04:20 Urine Total Protein Trace (Negative) H 09/04/23 04:20 SARS-CoV-2 Rap RNA(RT-PCR) Negative (NEGATIVE) 09/03/23 21:40 Weight: 147 lb 14.4 oz Wound Present: No Closed Surgical Incision Present: No Negative Pressure Wound Therapy Present: No Physician Update: She is doing very well with speech. SLUMS full score. Setup to Tripp for some transfers. Walking 75' with RW and rollator, setup assistance. Min assistance with most ADLs including toileting. Labs reviewed and are stable. Summary: Patient's care plan and long-term goals have been reviewed and revised as necessary. Please see the Rehabilitation Signature page for all necessary signatures.
[2023-09-23] MEDS: NEBIVOLOL HCL 5 MG TAB PO SCH (19:55)
[2023-09-23] MEDS: cloNIDine HCL 0.1 MG TAB PO PRN (23:16)
[2023-09-23] MEDS: BACLOFEN 10 MG TAB PO ONE (23:16)
--- NOTE | 2023-09-23 23:36 | PN ---
Date of Progress Note: 09/23/2023 Time Of Service: 1:20 p.m. Subjective: Ms. Landis is resting in bed. Family is at the bedside. She reports more movement in the feet and frequent urination now that Chao is out and she has voluntary control of urine and she als o wanted to make sure the blood pressure medicines were adjusted as she had some elevated blood press ures after Flomax was discontinued. Also, she notes some swelling in the feet and ankles that is rel ated to being dependent. This was discussed at length and the patient understood about leg elevation , foot elevation, and moving the feet with dorsiflexion and inversion and eversion activity along wit h plantar flexion activity and bending the knee to decrease swelling in the legs. Review of Systems: No fevers, chills, nausea, vomiting. No significant myalgias, arthralgias, rash, headache, weight ch alex. No other issues. Physical Examination: Vital Signs: Blood pressure 154/75, pulse 72, respiratory rate 16, temperature 98.2, oxygen saturati on 95%. General: Ms. Landis is resting in bed. HEENT: She is normocephalic, atraumatic. Sclerae anicteric. Oropharynx moist. Neck: Supple. Chest: Clear. Extremities: Shows mild to moderate edema in the right more than left lower extremity including the feet and ankles. Neurologic: She has some improved movement distally in the feet, 3/5 and approximately 3 to 4/5 with hip flexion and extension, knee extension as well. Laboratory Studies: No new laboratory studies since . X-ray/imaging: No new x-rays or imaging. Medications: Her medications have been reviewed and remain unchanged. Progress Made With Physical And Occupational Therapy: Today, with her physical therapy, she ambulate d with a rolling walker 75 feet twice, 145 feet twice, 175 feet with contact guard assistance. She w as able to go up and down 5 steps with both handrails with minimum assistance. With occupational the rapy, she required supervision for toilet hygiene while standing using a rolling walker, bathing and lower and upper body dressing, all done with supervision. She was independent with upper body dressi ng and grooming. Ms. Landis is making great progress with recovery of strength, coordination, endurance, and balance in the lower extremities. She is recovering from Guillain-Brock. Bladder function has returned. She h as had some elevated blood pressures as she has had decrease and actually stoppage of Flomax. Medications: Her medications that have been re-adjusted now to include the Flomax which we restarted at 0.4 mg tablet daily, hydrochlorothiazide also to be restarted at 12.5 mg daily, and Bystolic will be at 5 mg twice daily. Assessment: Ms. Landis is a 78-year-old patient in rehabilitation with Guillain-Brock, status post UMU G treatment. She has had more elevation in blood pressures. She is recovering her strength in the l ower extremities. She has had more frequent urination and the Flomax is now changed to just 1 daily, and her antihypertensive medications have been adjusted. She has had temporal lobe infarcts as note d and those are stable. Plan: 1.Continue with physical and occupational therapy for 3 hours a day, 5 of 7 days. 2.Blood pressure medications have been readjusted. She will continue with DVT prophylaxis. Continu e with trazodone for insomnia. Continue with JORGITO hose to above the knee to assist with the edema in the lower extremities. Comorbidities That Continue To Impact Rehabilitation: At this point, the slow return of strength alt valentin improving is still a limiting factor. Cognitively, she is doing very well. She does have more elevated blood pressures and has had her antihypertensive medications adjusted and she has had more frequent urination and her Flomax has been adjusted. CECIL/YAIMA Voice ID: [id number] Report ID: [id number]
[2023-09-24] MEDS: hydroCHLOROthiazide 12.5 MG CAP PO SCH (08:26)
[2023-09-24] MEDS: TAMSULOSIN 0.4 MG SR CAP PO SCH (11:02)
[2023-09-24] MEDS: hydrOXYzine HCL 25 MG TAB PO ONE (20:49)
--- NOTE | 2023-09-24 22:21 | PN ---
Date of Progress Note: 09/24/2023 Time Of Service: 1:05 p.m. Subjective: Ms. Landis is in bed. Family at bedside. She is happy with her progress so far. She not es less swelling in the lower extremities, especially as she does her foot exercises and leg exercise s along with the JORGITO hose placement. She did report some more elevated blood pressures, which were a ddressed by continuing antihypertensive medications, which had been held as she was on Flomax twice d aily. That has been discontinued. Review of Systems: She denies any fevers, chills, nausea, vomiting, myalgias, arthralgias, rash, headache, weight change . No other issues, although there is slight edema in the lower extremities. Physical Examination: Vital Signs: Blood pressure 160/71, pulse 77, respiratory rate of 17, temperature 98.1, oxygen satur ation 93% on room air. General: Ms. Landis is lying in bed. She is in no acute distress. HEENT: She is normocephalic, atraumatic. Sclerae anicteric. Oropharynx pink and moist. Neck: Supple. Chest: Clear. Extremities: Show mild edema in the lower extremities, slightly more in the right and left. Diffuse weakness in the lower extremities, but improving, 3+ foot dorsiflexion, plantar flexion, knee flexio n and extension around 3 to 4, and proximally in the hips around 3 to 4 as well. Laboratory Studies: No new laboratory studies. X-ray/imaging: No new x-rays or imaging. Medications: Her medication regimen essentially is unchanged. She does have the clonidine 0.1 mg ev sebastián 2 hours for systolic blood pressure greater than 170. Also, hydrochlorothiazide has been restart ed 12.5 mg daily, Flomax 1 tablet 0.4 mg also restarted. All other medications are remaining unchang ed. Progress Made With Physical And Occupational Therapy: Today with physical therapy, she ambulated 145 feet twice, another 175 feet 3 times with contact guard assistance. She ascended and descended 10 s teps with bilateral handrails with contact guard assistance. With occupational therapy, wheelchair t ransfer to a rolling walker independent, independent from room to bathroom with a rolling walker. Sh e did maintain her balance, was able to pull up pants with some difficulties due to impaired standing balance. Ms. Landis is making very good progress for recovery from her Guillain-[place] after receiving IVIG. Assessment: Ms. Landis is a 78-year-old patient in the rehabilitation unit with Guillain-[place], status post IVIG treatment. She has urinary retention which is improving. Hypertension and medications morel ve been adjusted. She has temporal lobe infarcts which are stable. In addition, constipation addres sed with Senokot S, insomnia addressed with trazodone, hypokalemia addressed with potassium replaceme nt, gabapentin addressing her peripheral neuropathy pain, Eliquis 2.5 mg twice daily for DVT prophyla xis, Tessalon Perles for cough, aspirin 81 mg for stroke risk reduction, and gabapentin for neuropath ic pain. Comorbidities That Are Continuing To Impact Her Rehabilitation: She has some fluctuating blood press ures and antihypertensive medications have been adjusted. In addition, significant lower extremity w eakness is improving slowly and she is doing well with mobilization and will, however, need continued therapy beyond the time of her admission to the inpatient rehabilitation unit and that is arranged b Home Health. CECIL/YAIMA Voice ID: [id number] Report ID: [id number]
[2023-09-25 05:32] LABS: Absolute Lymphocytes (CBC) 1.5 K/uL (0.7-4.9); Hematocrit 30.9 % (36.0-45.0); Lymphocytes % 26.4 % (15.3-44.8); MCV 91.4 fL (80-100); Platelets 250 thou/uL (152-406); RBC Red Blood Cell Count 3.38 M/uL (3.86-4.86)
[2023-09-25 05:52] LABS: Albumin 2.7 g/dL (3.4-5.0); Magnesium 1.9 mg/dL (1.6-2.4); Prealbumin 20.8 mg/dL (20-40)
[2023-09-25] MEDS: POTASSIUM 25 MEQ EFFERV TAB PO ONE (09:25)
[2023-09-25] MEDS: POTASSIUM CL SA 10 MEQ TAB PO SCH (20:25)
[2023-09-25] MEDS: GABAPENTIN 300 MG CAP PO SCH (20:45)
[2023-09-26] MEDS: POTASSIUM 25 MEQ EFFERV TAB PO ONE (07:21)
[2023-09-26 08:23] VITALS: BP 119/65; O2SAT 96
[2023-09-26 08:40] VITALS: TEMP 98.6
== END 2023-09-26 08:50 | disposition home health service (06) | DRG 556 ==
LOC: 5TH 19:28
PROVIDERS: ADMIT Psychiatry & Neurology Neurology with Special Qualifications in Child Neurology; ATTEND Psychiatry & Neurology Neurology with Special Qualifications in Child Neurology
DX: M62.81 Muscle weakness (generalized) (principal); N39.0 Urinary tract infection, site not specified; E87.1 Hypo-osmolality and hyponatremia; G65.0 Sequelae of Guillain-Barre syndrome; D64.9 Anemia, unspecified; E87.5 Hyperkalemia; R33.9 Retention of urine, unspecified; K59.00 Constipation, unspecified; N31.9 Neuromuscular dysfunction of bladder, unspecified; M48.00 Spinal stenosis, site unspecified; I10 Essential (primary) hypertension; E78.5 Hyperlipidemia, unspecified; J40 Bronchitis, not specified as acute or chronic; K21.9 Gastro-esophageal reflux disease without esophagitis; G62.9 Polyneuropathy, unspecified; G47.00 Insomnia, unspecified; F32.A Depression, unspecified; M19.90 Unspecified osteoarthritis, unspecified site
CPT/HCPCS: 36415; 74018; 80048; 81001; 82040; 83735; 84132; 84134; 85025; 87077; 87086; 87088; 87186; 87635; 92523; 97110; 97112; 97116; 97129; 97163; 97165; 97530; 97542; J2001; J7030; Q0162